=== PATIENT | female | born 1940 | race Caucasian/White ===

== ENCOUNTER 2020-02-17 13:02 | Inpatient (IN) | payer MEDICARE, BC ==
[~2020-02-17] VITALS: Ht 167.6 cm; Wt 54.4 kg
--- NOTE | 2020-02-17 13:10 | NUR ---
BIB DAUGHTER FROM SNF C/O R HIP PAIN S/P GLF 1 MONTH AGO. "WE DID A CT SCAN 2 DAYS AGO AND SHOWS R HIP FRACTURE AND KIDNEY STONE" PATIENT A/OX4, BREATHING EVEN AND UNLABORED, NO SOB NOTED. NEEDS ATTENDED.
--- NOTE | 2020-02-17 13:40 | NUR ---
PATIENT SEEN AND EVALUATED BY DR. PAULINO.
--- NOTE | 2020-02-17 14:01 | NUR ---
EMD TEACHER AT BEDSIDE FOR XRAY
[2020-02-17 14:07] LABS: EOSINOPHILS % (AUTO) 2.8 % (0.0-6.0); HEMATOCRIT 34 % (33-45); LYMPHOCYTES # (AUTO) 0.9 /CMM (0.8-4.8); LYMPHOCYTES % (AUTO) 23.6 % (20.0-44.0); MEAN CORPUSCULAR HGB CONC 33 g/dl (31.0-36.0); MEAN CORPUSCULAR VOLUME 83 fL (82-100); MONOCYTES # (AUTO) 0.4 /CMM (0.1-1.30); MONOCYTES % (AUTO) 11.2 % (2.0-12.0); NEUTROPHILS # (AUTO) 2.4 /CMM (1.8-8.9); NEUTROPHILS % (AUTO) 61.4 % (43.0-81.0); PLATELET COUNT (AUTO) 114 /CMM (150-450); WHITE BLOOD COUNT (AUTO) 3.8 K/uL (4.3-11.0)
[2020-02-17 14:16] LABS: CALCIUM, SERUM 9.3 mg/dL (8.5-10.1); CARBON DIOXIDE 27 mmol/L (21-32); CHLORIDE 105 mmol/L (98-107); CREATININE 1.6 mg/dL (0.6-1.3); GLUCOSE 135 mg/dL (74-106); POTASSIUM 3.9 mmol/L (3.5-5.1); SODIUM SERUM 139 mmol/L (136-145); UREA NITROGEN, BLOOD 23 mg/dL (7-18)
--- NOTE | 2020-02-17 14:22 | NUR ---
PAGED [facility].
[2020-02-17] MEDS ORDERED: QUET25TA PO ×2 (14:23→14:49)
[2020-02-17] MEDS ORDERED: TRAZ-257 PO (14:23)
--- NOTE | 2020-02-17 14:31 | NUR ---
VITA RODRIGES FOR CONSULT.
[2020-02-17] MEDS ORDERED: SITA25TA PO (14:37)
[2020-02-17] MEDS ORDERED: SERT50TA12 PO (14:37)
[2020-02-17] MEDS ORDERED: TRAZ-252 PO (14:37)
[2020-02-17] MEDS ORDERED: LEVE500T20 PO (14:37)
[2020-02-17] MEDS ORDERED: CELE-85 PO (14:37)
[2020-02-17] MEDS ORDERED: TIZA2TAB7 PO (14:37)
[2020-02-17] MEDS ORDERED: DOCU-141 PO (14:49)
[2020-02-17] MEDS ORDERED: ASPI-605 PO (14:49)
[2020-02-17] MEDS ORDERED: UBID30CA21 PO (14:49)
[2020-02-17] MEDS ORDERED: CALC-1198 PO (14:49)
[2020-02-17] MEDS ORDERED: FAMO20TA8 PO (14:49)
[2020-02-17] MEDS ORDERED: CRAN400C PO (14:49)
[2020-02-17] MEDS ORDERED: QUET50TA PO (14:49)
[2020-02-17] MEDS ORDERED: MAGN240P PO (14:49)
[2020-02-17] MEDS ORDERED: ONDANSETRON HCL/PF 4 MG/2 ML VIAL IVP PRN (15:30)
[2020-02-17] MEDS ORDERED: MAG HYDROX/AL HYDROX/SIMETH 30 ML UDC PO PRN (15:30)
[2020-02-17] MEDS ORDERED: ZOLPIDEM TARTRATE 5 MG TABLET PO PRN (15:30)
[2020-02-17] MEDS ORDERED: MAGNESIUM HYDROXIDE 30 ML UDC PO PRN (15:30)
[2020-02-17] MEDS ORDERED: Z GUARD REMEDY 2 OZ OINT TP PRN (15:30)
[2020-02-17] MEDS ORDERED: ACETAMINOPHEN 325 MG TABLET PO PRN (15:30)
--- NOTE | 2020-02-17 15:37 | NUR ---
PATIENT IS ATTEMPTING TO GET OUT OF BED, PATIENT HAS EPISODES OF CONFUSION.
--- NOTE | 2020-02-17 16:10 | NUR ---
BED 304-2
--- NOTE | 2020-02-17 16:17 | NUR ---
REPORT GIVEN TO PHOENIX STANTON.
[2020-02-17 17:00] VITALS: BP 138/86
--- NOTE | 2020-02-17 17:00 | NUR ---
PATIENT RECEIVED FROM ED AT 1700HRS VIA GUSTEFANIE, A/OX1, V/S WITHIN NORMAL LIMITS. RIGHT FOREARM #22G IV, INTACT, SL. PATIENT STATES NO PAIN AT THIS TIME. WILL CONTINUE TO MONITOR
--- NOTE | 2020-02-17 17:01 | NUR ---
PATIENT TRANSFERRED TO ROOM 304-2, NO DISTRESS NOTED. ENDORSED TO PHOENIX RN. PATIENT WAS SEEN AND EXAMINED BY SAMI MONROE.
[2020-02-17] MEDS: IV D5/0.45 NACL 1,000 ML IV PRN (18:53)
--- NOTE | 2020-02-17 18:58 | NUR ---
MS/RN NOTE THE PATIENT A/O X1. DENIES PAIN. IN ROOM AIR AND SATURATION IS AT 97%. RESPIRATION REGULAR AND UNLABORED. DENIES SOB. THE PATIENT IN NO APPARENT DISTRESS. NO SWELLING AND NO DISCOLORATION NOTED AT THE SITE. RFA G 20 PATENT AND5 1/2 NS INFUSING AT 75ML/HR AND NO S/S INFILTRATION NOTED. BED LOW AND LOCKED. SIDE RAILS UP X3. CALL LIGHT WITHIN REACH. WILL ENDORSE TO MILLER APPRENTICE.
--- NOTE | 2020-02-17 19:15 | NUR ---
RN MS OPENING NOTES RECEIVED PATIENT IN BED AWAKE ALERT AND ORIENTED X1, NOTED CONFUSED, RESPIRATIONS EVEN AND UNLABORED WITH EQUAL RISE AND FALL OF CHEST, APPEARS COMFORTABLE AT THIS TIME, NO S/S OF PAIN, IV SITE TO RIGHT FA #20G INTACT AND PATENT, NO REDNESS, NO INFILTRATION PRESENT, PATIENT IS NPO AT THIS TIME, ORIENTED TO STAFF AND CALL LIGHT AND KEPT WITHIN REACH, SAFETY PRECAUTIONS RENDERED, FALL PRECAUTIONS RENDERED, BED ALARM IN PLACE, BED AT LOWEST POSITION. WILL CONTINUE TO MONITOR, INCREASE FREQUENT MONITORING.
[2020-02-17 20:00] VITALS: BP 123/79
--- NOTE | 2020-02-17 22:17 | NUR ---
rn ms notes received call from dr. cornelius elliott with new order to dc npo at midnight and new order for patient to be npo on 02/18/20 after 8am. per cornelius will take care of consents and call family.
--- NOTE | 2020-02-17 22:42 | NUR ---
rn ms notes patient with multiple attempts to get out of bed and pulling on medical tubing , made hospitalist aware emmanuel luna regarding sitter, new order received for sitter, sitter at bedside.
--- NOTE | 2020-02-18 04:01 | NUR ---
RN MS NOTES BASED ON FLACC PAIN SCALE NOTED 4/10 FACIAL GRIMACING.
[2020-02-18] MEDS: HYDROCODONE/APAP 5/325MG 1 EACH TABLET PO PRN (04:02)
--- NOTE | 2020-02-18 04:02 | NUR ---
RN MS NOTES NOTED PATIENT IRRITABLE WITH FACIAL GRIMACING APPEARS TO BE IN DISCOMFORT, NORCO PRN GIVEN TO PROVIDE RELIEF FOR PAIN WILL CONTINUE TO MONITOR.
--- NOTE | 2020-02-18 06:14 | NUR ---
RN MS CLOSING NOTES PATIENT IN BED AWAKE ALERT AND ORIENTED X1, NOTED CONFUSED, RESPIRATIONS EVEN AND UNLABORED WITH EQUAL RISE AND FALL OF CHEST, APPEARS COMFORTABLE AT THIS TIME NORCO EFFECTIVE, NO S/S OF PAIN, IV SITE TO RIGHT HAND #22G INTACT AND PATENT, NO REDNESS, NO INFILTRATION PRESENT, IVF RUNNING ORDERD,PATIENT IS TO BE NPO AFTER 8AM ORDERED PER CHELO LEAL,SITTER AT BEDSIDE, CALL LIGHT KEPT WITHIN REACH, SAFETY PRECAUTIONS RENDERED, FALL PRECAUTIONS RENDERED, BED ALARM IN PLACE, FLUIDS AND SNACK OFFERED TOLERATED WELL, BED AT LOWEST POSITION. WILL CONTINUE TO MONITOR, INCREASE FREQUENT MONITORING AND ENDORSE TO NEXT SHIFT. NO FURTHER CHANGES NOTED
[2020-02-18 07:18] VITALS: BP 123/79
[2020-02-18 07:22] LABS: BASOPHILS # (AUTO) 0.1 /CMM (0.0-0.2); BASOPHILS % (AUTO) 1.2 % (0.0-2.0); EOSINOPHILS % (AUTO) 1.7 % (0.0-6.0); HEMATOCRIT 34 % (33-45); HEMOGLOBIN 11.2 g/dL (11.5-14.8); LYMPHOCYTES # (AUTO) 0.9 /CMM (0.8-4.8); LYMPHOCYTES % (AUTO) 18.8 % (20.0-44.0); MEAN CORPUSCULAR HGB CONC 33 g/dl (31.0-36.0); MEAN CORPUSCULAR VOLUME 82 fL (82-100); MONOCYTES # (AUTO) 0.5 /CMM (0.1-1.30); MONOCYTES % (AUTO) 10.7 % (2.0-12.0); NEUTROPHILS # (AUTO) 3.3 /CMM (1.8-8.9); NEUTROPHILS % (AUTO) 67.6 % (43.0-81.0); PLATELET COUNT (AUTO) 126 /CMM (150-450); RED BLOOD CELL COUNT(AUTO) 4.22 MIL/uL (4.0-5.2); WHITE BLOOD COUNT (AUTO) 4.9 K/uL (4.3-11.0)
[2020-02-18 07:39] LABS: CALCIUM, SERUM 8.9 mg/dL (8.5-10.1); CARBON DIOXIDE 22 mmol/L (21-32); CHLORIDE 107 mmol/L (98-107); CREATININE 1.5 mg/dL (0.6-1.3); GLUCOSE 129 mg/dL (74-106); PHOSPHORUS 3.4 mg/dL (2.5-4.9); POTASSIUM 3.2 mmol/L (3.5-5.1); SODIUM SERUM 140 mmol/L (136-145); UREA NITROGEN, BLOOD 19 mg/dL (7-18)
[2020-02-18 07:47] LABS: THYROID STIMULATING HORMONE 1.938 uIU/mL (0.358-3.74)
[2020-02-18 08:00] VITALS: BP 116/71
--- NOTE | 2020-02-18 08:00 | NUR ---
rn notes Received patient in the room a/o x1, confused, room air, v/s stable. 1;1 sitter next to the patient for safety. patient undress self, removed, diaper, verbally abusive. patient npo possible going surgery, seen hospitalist, call light within to reach, continued monitoring.
[2020-02-18] MEDS ORDERED: POTASSIUM CHLORIDE 20 MEQ TAB.PRT.SR PO SCH (09:00)
[2020-02-18 09:18] LABS: IRON, SERUM 60 ug/dl (50-175); TOTAL IRON BINDING CAPACITY 196 ug/dl (250-450)
--- NOTE | 2020-02-18 09:39 | NUR ---
rn notes seen patient by discount clerk Dr Walker. Patient confused, undressing self, hard to follow direction.
[2020-02-18 11:03] LABS: FERRITIN 73 ng/mL (8-388)
--- NOTE | 2020-02-18 11:20 | NUR ---
RN NOTES PATIENT'S DAUGHTER CALLED FOR AND AGREE FOR SURGERY, CO SIGNED CONSENT WITH CHARGE NURSE GURMEET, NOTIFIED SAMI MONROE FOR CONSENT FORM.
[2020-02-18 12:00] VITALS: BP 162/78
[2020-02-18] MEDS: MORPHINE SULFATE INJ 2 MG/ML DISP.SYRIN IV PRN ×2 (12:02→21:56)
--- NOTE | 2020-02-18 12:02 | NUR ---
rn notes administered Morphine sulfate 2 mg/ml iv push for right hip pain 04/25 per patient request, v/s taken bp 162/78,p-94, r-19. continued monitoring.
--- NOTE | 2020-02-18 13:17 | NUR ---
rn notes medication were administered for pain effective, patient eating lunch tolerated well, patient will rescheduled right hip surgery tomorrow at 07;30 am, daughter name Bibiana notified, and assist to talk to her mother by phone..
--- NOTE | 2020-02-18 16:43 | NUR ---
rn notes get call from anesthesiologist patient need covid-19 testing before surgery, order taken and carried out.
--- NOTE | 2020-02-18 18:00 | NUR ---
RN NOTES COVID-19 TESTED SWAB SANDED TO THE LAB, PATIENT STABLE, V/S WNL. 1:1 SITTER NEXT TO THE BED FOR SAFETY, IV ACCESS INTACT ON RIGHT HAND. PATIENT CONFUSED, UNDRESS SELF, TRYING TO PULL IV ACCESS, NEED CONSTANT REDIRECTION. CALL LIGHT WITHIN TO REACH. ENDORSED ONCOMING NURSE FOLLOW PLAN OF CARE.
--- NOTE | 2020-02-18 18:36 | NUR ---
MS RN NOTES ORAL COVID SWAB TEST DONE, DURING EXAM, PATIENT KEPT ON MOVING TONGUE, COUGHING AND PUSHING SWAB AWAY.
--- NOTE | 2020-02-18 19:05 | NUR ---
RN MS OPENING NOTES RECEIVED PATIENT IN BED AWAKE ALERT AND ORIENTED X1, NOTED CONFUSED, RESPIRATIONS EVEN AND UNLABORED WITH EQUAL RISE AND FALL OF CHEST, APPEARS COMFORTABLE AT THIS TIME , NO S/S OF PAIN, IV SITE TO RIGHT HAND #22G INTACT AND PATENT, NO REDNESS, NO INFILTRATION PRESENT, IVF RUNNING ORDERED,PATIENT IS TO BE NPO AFTER MIDNIGHT FOR SCHEDULED PROCEDURE. ORDERED PER CHELO LEAL,SITTER AT BEDSIDE, CALL LIGHT KEPT WITHIN REACH, SAFETY PRECAUTIONS RENDERED, FALL PRECAUTIONS RENDERED, BED ALARM IN PLACE, FLUIDS AND SNACK OFFERED TOLERATED WELL AT THIS TIME, BED AT LOWEST POSITION. WILL CONTINUE TO MONITOR AND ATTEND TO NEEDS.
[2020-02-18 20:00] VITALS: BP 114/70
--- NOTE | 2020-02-18 21:56 | NUR ---
RN MS NOTES PATIENT COMPLAINT OF PAIN TO HIP AREA, UNABLE TO STATE NUMBER. BASED ON FACE SCALE PAIN ASSESSMENT 8/10. PATIENT NOTED WITH FACIAL GRIMACING, MOANING, GRASPING RIGHT HIP AREA, AND IRRITABLE. MORPHINE PRN ORDERED GIVEN 2MG/1ML, VS WNL WILL CONTINUE TO MONITOR FOR EFFECTIVENESS, PATIENT REPOSITIONED FOR COMFORT.
[2020-02-19] MEDS: IV D5/0.45 NACL 1,000 ML IV PRN (02:21)
--- NOTE | 2020-02-19 04:04 | NUR ---
RN MS NOTES CALLED LAB TO FOLLOW UP FOR COVID RESULTS, STILL PENDING.
--- NOTE | 2020-02-19 06:09 | NUR ---
RN MS CLOSING NOTES PATIENT IN BED AWAKE ALERT AND ORIENTED X1, NOTED CONFUSED, RESPIRATIONS EVEN AND UNLABORED WITH EQUAL RISE AND FALL OF CHEST, APPEARS COMFORTABLE AT THIS TIME MORPHINE WAS EFFECTIVE , NO S/S OF PAIN AT THIS TIME, IV SITE TO RIGHT HAND #22G INTACT AND PATENT, NO REDNESS, NO INFILTRATION PRESENT, IVF RUNNING ORDERED,PATIENT REMAINED NPO AT MIDNIGHT FOR SCHEDULED SURGICAL PROCEDURE THIS AM. ORDERED PER CHELO LEAL,SITTER AT BEDSIDE, CALL LIGHT KEPT WITHIN REACH, SAFETY PRECAUTIONS RENDERED, FALL PRECAUTIONS RENDERED, BED ALARM IN PLACE, BED AT LOWEST POSITION. REPOSITIONED AND OFFLOADED SACRAL INTACT WILL CONTINUE TO MONITOR AND ATTEND TO NEEDS AND ENDORSE TO NEXT SHIFT.
--- NOTE | 2020-02-19 07:02 | NUR ---
RN MS NOTES PATIENT LEFT FOR SURGERY PICKED UP BY SURGICAL STAFF. LEFT THE UNIT IN STABLE CONDITION. ALL CONSENTS AND CHECKLIST DONE.
[2020-02-19] MEDS ORDERED: HYDROMORPHONE INJ 2 MG/ML DISP.SYRIN ONE (07:06)
[2020-02-19] MEDS ORDERED: ROCURONIUM BROMIDE 50 MG/5 ML ONE (07:07)
[2020-02-19] MEDS ORDERED: ANESTHESIA TRAY IN PYXIS 1 EA TRAY MC ONE (07:10)
[2020-02-19] MEDS ORDERED: BUPIVACAINE 0.5 % PF 150 MG/30 ML VIAL ONE (07:10)
[2020-02-19] MEDS ORDERED: BACITRACIN 50000 UNITS/VIAL ONE (07:10)
[2020-02-19 07:30] VITALS: BP 115/70
[2020-02-19] MEDS ORDERED: TRANEXAMIC ACID 1,000 MG in IV NS 0.9% 100 ML IV PRN (08:30)
--- NOTE | 2020-02-19 08:33 | NUR ---
WOUND CARE CONSULT: PT OFF UNIT AT THIS TIME. WILL SEE PT PT CONDITION PERMITS. DISCUSSED SKIN PROTECTION WITH NURSING STAFF.
[2020-02-19] MEDS ORDERED: VANCOMYCIN 1 GM VIAL ONE (08:59)
[2020-02-19] MEDS: CALCIUM CITRATE(CITRACAL) /VITAMIN D 1 TAB TABLET PO SCH (10:00)
[2020-02-19] MEDS ORDERED: HYDROMORPHONE 1 MG/1 ML DISP.SYRIN ONE (10:05)
[2020-02-19 10:24] LABS: BASOPHILS # (AUTO) 0.1 /CMM (0.0-0.2); BASOPHILS % (AUTO) 0.7 % (0.0-2.0); EOSINOPHILS % (AUTO) 0.4 % (0.0-6.0); HEMATOCRIT 33 % (33-45); HEMOGLOBIN 10.7 g/dL (11.5-14.8); LYMPHOCYTES # (AUTO) 2.9 /CMM (0.8-4.8); LYMPHOCYTES % (AUTO) 17.4 % (20.0-44.0); MEAN CORPUSCULAR HGB CONC 32 g/dl (31.0-36.0); MEAN CORPUSCULAR VOLUME 83 fL (82-100); MONOCYTES # (AUTO) 0.6 /CMM (0.1-1.30); MONOCYTES % (AUTO) 3.5 % (2.0-12.0); NEUTROPHILS # (AUTO) 13.2 /CMM (1.8-8.9); PLATELET COUNT (AUTO) 197 /CMM (150-450); RED BLOOD CELL COUNT(AUTO) 4.02 MIL/uL (4.0-5.2); WHITE BLOOD COUNT (AUTO) 16.9 K/uL (4.3-11.0)
[2020-02-19 10:44] LABS: ALANINE AMINOTRANSFERASE 23 U/L (12-78); ALBUMIN 3.3 g/dL (3.4-5.0); ALKALINE PHOSPHATASE 52 U/L (46-116); ASPARTATE AMINOTRANSFERASE 22 U/L (15-37); BILIRUBIN,TOTAL 0.6 mg/dL (0.2-1.0); CARBON DIOXIDE 21 mmol/L (21-32); CHLORIDE 108 mmol/L (98-107); CREATININE 1.5 mg/dL (0.6-1.3); GLUCOSE 207 mg/dL (74-106); MAGNESIUM 1.8 mg/dL (1.8-2.4); PHOSPHORUS 3.3 mg/dL (2.5-4.9); POTASSIUM 3.6 mmol/L (3.5-5.1); SODIUM SERUM 141 mmol/L (136-145); TOTAL PROTEIN, SERUM 5.8 g/dL (6.4-8.2); UREA NITROGEN, BLOOD 18 mg/dL (7-18)
--- NOTE | 2020-02-19 10:45 | NUR ---
RETURNED FROM OR.RT. HIP DRESSING DRY AND INTACT.ABD. PILLOW IN PLACE DVT PUMPS ON 2 IV SITES INTACT.F/CATH TO GRAVITY DRAINAGE.VS DONE AND STABLE.SKIN WARM AND DRY.PT. VERY GROGGY.
[2020-02-19] MEDS: IV LR 1000 ML 1,000 ML IV PRN ×2 (11:28→22:53)
--- NOTE | 2020-02-19 13:00 | NUR ---
DTR. CALLING IN TO CHECK ON PT.
[2020-02-19 16:00] VITALS: BP 135/73
[2020-02-19] MEDS: MORPHINE SULFATE INJ 2 MG/ML DISP.SYRIN IV PRN ×2 (16:02→22:50)
[2020-02-19] MEDS: CEFAZOLIN 2 GM in IV D5W 100 ML IV SCH ×2 (17:13→23:06)
[2020-02-19] MEDS: QUETIAPINE FUMARATE 25 MG TABLET PO SCH (17:17)
[2020-02-19] MEDS: FAMOTIDINE (20 MG) 20 MG TABLET PO SCH (17:17)
--- NOTE | 2020-02-19 18:00 | NUR ---
EMESIS X 2. GIVEN ZOFRAN X 1 AND MEDICATED X 1 WITH MORPHINE.PT. VERY CONFUSED. CHANGE TO ISOFLEX BED. HEATHER. FAIRLY WELL.PT. HAS CONTINUAL SITTER.SIDERAILS UP.
--- NOTE | 2020-02-19 19:45 | NUR ---
MS RN OPENING NOTES RECEIVED PATIENT RESTING IN BED COMFORTABLY; A/OX1, CONFUSED; SITTER AT BEDSIDE; PATIENT TOLERATING ROOM AIR WELL; BREATHING EVEN AND UNLABORED; NO SOB NOTED; R HAND # 22 INTACT AND PATENT; FLUSHING WELL, NO S/S OF REDNESS OR INFILTRATION NOTED; LOYA IN PLACE, FLOWING YELLOW OUTPUT; HIP ABDUCTOR PILLOW IN PLACE; PATIENT SCREAMING ONCE WE ATTEMPTED TO REPOSITION HER; WILL ATTEMPT TO REPOSITION AGAIN LATER, LEFT HIP OFFLOADED; SAFETY PRECAUTIONS IMPLEMENTED; BED LOCKED IN LOW POSITION; SIDE RAILS X2; WILL CONT TO MONITOR
[2020-02-19 20:00] VITALS: BP 139/63
[2020-02-19] MEDS: TRAZODONE 50 MG TABLET PO SCH (21:00)
[2020-02-19] MEDS ORDERED: Medication Not On Formulary EA (Quetiapine Fumarate (Seroquel) 50 MG) PO SCH (22:00)
--- NOTE | 2020-02-19 22:06 | NUR ---
MS STANTON NOTES SPOKE WITH PATIENT DAUGHTER; DAUGHTER INFORMED OF COVID RESULTS WILL TAKE A BIT LONGER THAN 2-3 DAYS D/T LAB BEING SWAMPED WITH COVID TESTS; DAUGHTER SAYS IT IS OKAY TO KEEP PATIENT HERE IF NEEDED; WILL CONT TO MONITOR Addendum: 02/19/20 at 2231 by FRANK CAMPBELL RN PER DAUGHTER (KAMALA), TRY NORCO FOR PAIN MEDICATION PRIOR TO MORPHINE; DAUGHTER DOES NOT WANT MOTHER TO RECEIVE TOO MUCH MORPHINE. WILL INFORM ONCOMING NURSE
--- NOTE | 2020-02-19 23:07 | NUR ---
MS RN NOTES PATIENT IN PAIN, CRYING AND IN DISTRESS; PATIENT IS COMBATIVE; VITALS STABLE BP: 148/98 HR: 115; MORPHINE GIVEN, WILL CONT TO MONITOR AND RE-ASSESS; DAUGHTER CALLED AND INFORMED OF PATIENT CONDITION;
--- NOTE | 2020-02-20 00:08 | NUR ---
MS RN NOTES PATIENT SLEEPING IN BED COMFORTABLY WITH SITTER AT BEDSIDE; WILL CONT TO MONITOR
--- NOTE | 2020-02-20 01:50 | NUR ---
MS RN NOTES PATIENT CONFUSED AND PULLED OUT IV LINE; IV TIP STILL INTACT, NO SIGNS OF BLEEDING; PATIENT COMBATIVE AT THIS TIME; NO DUE IV ANTIBIOTICS AT THIS TIME; WILL ATTEMPT IV ACCESS; CHARGE NURSE AWARE; WILL CONT TO MONITOR;
--- NOTE | 2020-02-20 04:00 | NUR ---
MS RN NOTES IV ACCESS OBTAINED, L FA # 24 INTACT AND PATENT, FLUSHING WELL, NO S/S OF REDNESS OR INFILTRATION NOTED; WILL CONT TO MONITOR
--- NOTE | 2020-02-20 06:40 | NUR ---
MS RN NOTES SPOKE WITH PIPE CAULKER FOR COVID RESULTS, COVID NEGATIVE; WILL INFORM ONCOMING SHIFT; PATIENT RESTING IN BED COMFORTABLY; A/OX1, CONFUSED; SITTER AT BEDSIDE; BREATHING EVEN AND UNLABORED; NO SOB NOTED; PATIENT TOLERATING ROOM AIR WELL; L FA #24 INTACT AND PATENT, FLUSHING WELL, NO S/S OF REDNESS OR INFILTRATION NOTED; LOYA INTACT, FLOWING YELLOW OUTPUT OF 450CC THROUGHOUT SHIFT; ALL NEEDS RENDERED; SAFETY PRECAUTIONS IMPLEMENTED; BED LOCKED IN LOW POSITION; SIDE RAILS X2; WILL ENDORSE TIMMY TO ONCOMING SHIFT
--- NOTE | 2020-02-20 07:00 | NUR ---
MS RN OPENING NOTES RECEIVED PATIENT AWAKE; A/OX1, CONFUSED; 1:1 SITTER AT BEDSIDE; PATIENT SATURATING WELL ON RA; NO SOB NOTED, NO S/S OF ANY PAIN AT THIS TIME.RESPIRATIONS EVEN AND UNLABORED; IV ACCESS TO LFA G# 24, INTACT PATENT AND FLUSHING WELL, LOYA CATHETER IN PLACE, DRAINING TO GRAVITY CLEAR YELLOW URINE OUTPUT; HIP ABDUCTOR PILLOW IN PLACE; ASPIRATION AND SAFETY PRECAUTIONS IN PLACE. HOB ELEVATED TO SEMI FOWLERS POSITION; BED LOCKED LOWEST POSITION; SIDE RAILS UP; BED ALARM ON, CALL LIGHT WITHIN REACH. WILL CONTINUE TO MONITOR
[2020-02-20 08:16] LABS: BASOPHILS % (AUTO) 0.6 % (0.0-2.0); EOSINOPHILS % (AUTO) 0.1 % (0.0-6.0); HEMATOCRIT 27 % (33-45); HEMOGLOBIN 8.8 g/dL (11.5-14.8); LYMPHOCYTES # (AUTO) 0.9 /CMM (0.8-4.8); LYMPHOCYTES % (AUTO) 11.2 % (20.0-44.0); MEAN CORPUSCULAR HGB CONC 33 g/dl (31.0-36.0); MEAN CORPUSCULAR VOLUME 82 fL (82-100); MONOCYTES % (AUTO) 11.8 % (2.0-12.0); NEUTROPHILS # (AUTO) 6.4 /CMM (1.8-8.9); NEUTROPHILS % (AUTO) 76.3 % (43.0-81.0); PLATELET COUNT (AUTO) 131 /CMM (150-450); RED BLOOD CELL COUNT(AUTO) 3.24 MIL/uL (4.0-5.2); WHITE BLOOD COUNT (AUTO) 8.4 K/uL (4.3-11.0)
[2020-02-20 08:48] LABS: CALCIUM, SERUM 8.8 mg/dL (8.5-10.1); CARBON DIOXIDE 23 mmol/L (21-32); CHLORIDE 107 mmol/L (98-107); CREATININE 1.6 mg/dL (0.6-1.3); GLUCOSE 149 mg/dL (74-106); MAGNESIUM 1.9 mg/dL (1.8-2.4); PHOSPHORUS 2.6 mg/dL (2.5-4.9); POTASSIUM 3.6 mmol/L (3.5-5.1); SODIUM SERUM 140 mmol/L (136-145); UREA NITROGEN, BLOOD 26 mg/dL (7-18)
[2020-02-20] MEDS: DOCUSATE SODIUM 100 MG CAPSULE PO SCH (08:55)
[2020-02-20] MEDS: FAMOTIDINE (20 MG) 20 MG TABLET PO SCH ×2 (08:55→16:49)
[2020-02-20] MEDS: ASPIRIN EC 81 MG TABLET.DR PO SCH (08:55)
[2020-02-20] MEDS: MAGNESIUM OXIDE 400 MG TABLET PO SCH (08:55)
[2020-02-20] MEDS: HYDROCODONE/APAP 5/325MG 1 EACH TABLET PO PRN (08:56)
[2020-02-20] MEDS: SERTRALINE HCL 50 MG TABLET PO SCH (08:56)
[2020-02-20] MEDS: QUETIAPINE FUMARATE 25 MG TABLET PO SCH ×2 (08:56→16:49)
--- NOTE | 2020-02-20 08:56 | NUR ---
PT GRIMACING, GROANING AND CRYING. NORCO 5-325MG PO Q4HR PRN ADMINISTERED. WILL CONTINUE TO MONITOR
[2020-02-20] MEDS: ENOXAPARIN SODIUM 30 MG/0.3 ML DISP.SYRIN SQ SCH (08:57)
[2020-02-20] MEDS ORDERED: UBIDECARENONE 30 MG PO SCH (09:00)
[2020-02-20] MEDS ORDERED: Medication Not On Formulary EA (Cranberry 400 MG) PO SCH (09:00)
[2020-02-20] MEDS ORDERED: POTASSIUM CHLORIDE 20 MEQ TAB.PRT.SR PO SCH (10:00)
[2020-02-20] MEDS: CALCIUM CITRATE(CITRACAL) /VITAMIN D 1 TAB TABLET PO SCH (10:22)
[2020-02-20] MEDS: IV NS 0.9% 1,000 ML IV PRN ×2 (10:31→23:17)
[2020-02-20] MEDS: POTASSIUM CL. PREMIX PERIPHER. 50 ML IV SCH ×4 (11:20→14:28)
[2020-02-20] MEDS: MORPHINE SULFATE INJ 2 MG/ML DISP.SYRIN IV PRN ×2 (12:47→17:46)
[2020-02-20] MEDS ORDERED: HYDR-3972 PO (15:33)
[2020-02-20] MEDS ORDERED: ENOX30DI SQ (15:33)
[2020-02-20] MEDS ORDERED: hydrALAZINE HCL 25 MG TABLET PO PRN (17:30)
--- NOTE | 2020-02-20 18:50 | NUR ---
MS RN CLOSING NOTES PT IN BED, AWAKE AT THIS TIME. PATIENT REMAINED STABLE THROUGHOUT SHIFT. ALL NEEDS, CARE, TREATMENT AND MEDICATIONS ADMINISTERED ANTICIPATED PER PROTOCOL. PATIENT KEPT CLEAN AND DRY. SAFETY PRECAUTIONS IN PLACE. LOYA CATHETER D/C. HOB ELEVATED TO SEMI FOWLERS POSITION; SIDE RAILS UP AND PADDED, BED ALARM ON, BED LOCKED LOWEST POSITION. CALL LIGHT WITHIN REACH. WILL ENDORSE TO DIGITAL STRATEGIST NURSE FOR TIMMY
--- NOTE | 2020-02-20 19:35 | NUR ---
MS RN OPENING NOTES PATIENT SLEEPING IN BED. A/OX1; CONFUSED; 1 ON 1 SITTER PRESENT AT THE BEDSIDE. ON RA. NO S/S OF ACUTE RESPIRATORY DISTRESS; BREATHING IS EVEN AND UNLABORED; NO S/S OF PAIN NOTED. ABDUCTION PILLOW PRESENT; SURGICAL SITE ON RIGHT HIP DRY AND INTACT. IV PRESENT ON LEFT FOREARM, SIZE 22, INTACT & PATENT, NS RUNNING AT 125 ML/HR. PATIENT TO BE DISCHARGED TO [facility]; AWAITING FOR PICKUP BY [facility]. SAFETY MEASURES IN PLACE AND PATIENT'S NEEDS MET. BED LOCKED, ALARM ON, SIDE RAILS X2, CALL LIGHT WITHIN REACH. WILL CONTINUE TO MONITOR.
--- NOTE | 2020-02-20 19:50 | NUR ---
MS RN NOTE CALLED [facility] FOR REPORT; SPOKE TO ELIE. PATIENT TO BE PLACED IN ROOM 110 B. AWAITING FOR TRANSPORTATION.
[2020-02-20 20:00] VITALS: BP 124/70
--- NOTE | 2020-02-20 20:15 | NUR ---
MS RN NOTES RECEIVED CALL FROM [facility]. PER NURSEELIE, FACILITY IS UNABLE TO ACCEPT PATIENT DUE TO CONFUSION/COMBATIVENESS. NURSING CHANNELER RUNNER AND CASE MANAGEMENT AWARE. CASE MANAGEMENT TO F/U WITH SNF.
[2020-02-20] MEDS: TRAZODONE 50 MG TABLET PO SCH (22:38)
--- NOTE | 2020-02-21 06:40 | NUR ---
MS RN CLOSING NOTES PATIENT SLEEPING IN BED. A/OX1; 1 ON 1 SITTER PRESENT AT THE BEDSIDE. ON RA. NO S/S OF ACUTE RESPIRATORY DISTRESS; BREATHING IS EVEN AND UNLABORED; NO S/S OF PAIN NOTED. ABDUCTION PILLOW REMAINS PRESENT. IV PRESENT ON LEFT FOREARM, SIZE 22, INTACT & PATENT, NS RUNNING AT 125 ML/HR. SAFETY MEASURES IN PLACE AND PATIENT'S NEEDS MET. BED LOCKED, ALARM ON, SIDE RAILS X2, CALL LIGHT WITHIN REACH. WILL ENDORSE TO DAY SHIFT NURSE PLAN OF CARE.
--- NOTE | 2020-02-21 07:25 | NUR ---
MS RN NOTES RECEIVED PATIENT IN BED RESTING COMFORTABLY IN MODERATE HIGH BACK REST. A/OX1; 1 ON 1 SITTER PRESENT AT THE BEDSIDE. ON RA. NO S/S OF DISTRESS NOTED AT THIS TIME; BREATHING IS EVEN AND UNLABORED; ABDUCTION PILLOW REMAINS PRESENT. IV PRESENT ON LEFT FOREARM, #22, INTACT & PATENT, NS RUNNING AT 125 ML/HR. SAFETY MEASURES IN PLACE. BED LOCKED, ALARM ON, SIDE RAILS X2, CALL LIGHT WITHIN REACH. WILL CONTINUE TO MONITOR.
[2020-02-21 07:46] LABS: BASOPHILS % (AUTO) 0.4 % (0.0-2.0); EOSINOPHILS % (AUTO) 0.9 % (0.0-6.0); HEMATOCRIT 22 % (33-45); HEMOGLOBIN 7.6 g/dL (11.5-14.8); LYMPHOCYTES # (AUTO) 0.8 /CMM (0.8-4.8); LYMPHOCYTES % (AUTO) 13.9 % (20.0-44.0); MEAN CORPUSCULAR HGB CONC 34 g/dl (31.0-36.0); MEAN CORPUSCULAR VOLUME 83 fL (82-100); MONOCYTES # (AUTO) 0.8 /CMM (0.1-1.30); MONOCYTES % (AUTO) 13.1 % (2.0-12.0); NEUTROPHILS # (AUTO) 4.2 /CMM (1.8-8.9); NEUTROPHILS % (AUTO) 71.7 % (43.0-81.0); PLATELET COUNT (AUTO) 94 /CMM (150-450); RED BLOOD CELL COUNT(AUTO) 2.68 MIL/uL (4.0-5.2); WHITE BLOOD COUNT (AUTO) 5.9 K/uL (4.3-11.0)
[2020-02-21 08:00] VITALS: BP 130/74
[2020-02-21 08:01] LABS: ALBUMIN 2.7 g/dL (3.4-5.0); CALCIUM, SERUM 7.9 mg/dL (8.5-10.1); CREATININE 1.2 mg/dL (0.6-1.3); PHOSPHORUS 2.3 mg/dL (2.5-4.9); TOTAL PROTEIN, SERUM 5.4 g/dL (6.4-8.2)
[2020-02-21] MEDS: CALCIUM CITRATE(CITRACAL) /VITAMIN D 1 TAB TABLET PO SCH (08:31)
[2020-02-21] MEDS: SERTRALINE HCL 50 MG TABLET PO SCH (08:32)
[2020-02-21] MEDS: QUETIAPINE FUMARATE 25 MG TABLET PO SCH ×2 (08:32→16:25)
[2020-02-21] MEDS: DOCUSATE SODIUM 100 MG CAPSULE PO SCH (08:32)
[2020-02-21] MEDS: FAMOTIDINE (20 MG) 20 MG TABLET PO SCH ×2 (08:32→16:25)
[2020-02-21] MEDS: MAGNESIUM OXIDE 400 MG TABLET PO SCH (08:32)
[2020-02-21] MEDS: ASPIRIN EC 81 MG TABLET.DR PO SCH (08:33)
[2020-02-21] MEDS: ENOXAPARIN SODIUM 30 MG/0.3 ML DISP.SYRIN SQ SCH (08:35)
[2020-02-21] MEDS: LOSARTAN POTASSIUM 50 MG TABLET PO SCH (09:14)
[2020-02-21 09:38] LABS: LYMPHOCYTES % (MANUAL) 10 % (16-48); MONOCYTES % (MANUAL) 10 % (0-11.0); NEUTROPHILS % (MANUAL) 80 (42-76)
[2020-02-21] MEDS ORDERED: K PHOS NEUTRAL 250 MG TABLET PO ONE (12:30)
--- NOTE | 2020-02-21 15:15 | NUR ---
RN NOTES SEEN AND EXAMINE BY DR. MACE WITH ORDERS OF ENSURE TID, ORDERS MADE AND CARRIED OUT. WILL CONTINUE TO MONITOR.
[2020-02-21 16:00] VITALS: BP 115/64
--- NOTE | 2020-02-21 17:00 | NUR ---
RN NOTES CALLED AND LEFT MESSAGE AT DR. PARKS OFFICE( [phone]) REGARDING CONSULT. PLEASE FOLLOW UP.
--- NOTE | 2020-02-21 18:51 | NUR ---
MS RN NOTES PATIENT IN BED RESTING COMFORTABLY IN MODERATE HIGH BACK REST. A/OX1; 1 ON 1 SITTER PRESENT AT THE BEDSIDE. ON RA. NO S/S OF DISTRESS NOTED THROUGHOUT THE SHIFT; BREATHING IS EVEN AND UNLABORED; ABDUCTION PILLOW REMAINS PRESENT. SAFETY MEASURES IN PLACE. BED LOCKED, ALARM ON, SIDE RAILS X2, CALL LIGHT WITHIN REACH. WILL ENDORSE TO TAKER OUT NURSE FOR TIMMY.
--- NOTE | 2020-02-21 19:30 | NUR ---
MS RN OPENING NOTE RECEIVED PATIENT IN BED. A/OX1, PER REPORT PATIENT IS CONFUSED AND COMBATIVE. TOLERATING ROOM AIR. RESPIRATIONS ARE EVEN AND UNLABORED. NO S/S SOB NOTED. NO S/S PAIN AT THIS TIME. IN NO APPARENT DISTRESS. IV ACCESS IN LFA #22 CURRENTLY PATENT AND SALINE LOCKED. BED IS LOWEST POSITION AND LOCKED, HOB FLAT, SIDE RIALS UP X3. CALL LIGHT WITHIN REACH. SITTER BRANDT AT BEDSIDE. WILL CONTINUE TO MONITOR.
[2020-02-21 20:00] VITALS: BP 134/72
[2020-02-21] MEDS: IV NS 0.9% 1,000 ML IV PRN (20:04)
[2020-02-21] MEDS: TRAZODONE 50 MG TABLET PO SCH (22:00)
[2020-02-22 06:39] LABS: BASOPHILS % (AUTO) 0.4 % (0.0-2.0); EOSINOPHILS % (AUTO) 1.9 % (0.0-6.0); HEMATOCRIT 23 % (33-45); HEMOGLOBIN 7.7 g/dL (11.5-14.8); LYMPHOCYTES # (AUTO) 0.9 /CMM (0.8-4.8); LYMPHOCYTES % (AUTO) 18.8 % (20.0-44.0); MEAN CORPUSCULAR HGB CONC 34 g/dl (31.0-36.0); MEAN CORPUSCULAR VOLUME 83 fL (82-100); MONOCYTES # (AUTO) 0.5 /CMM (0.1-1.30); MONOCYTES % (AUTO) 9.8 % (2.0-12.0); NEUTROPHILS # (AUTO) 3.2 /CMM (1.8-8.9); NEUTROPHILS % (AUTO) 69.1 % (43.0-81.0); PLATELET COUNT (AUTO) 102 /CMM (150-450); RED BLOOD CELL COUNT(AUTO) 2.77 MIL/uL (4.0-5.2); WHITE BLOOD COUNT (AUTO) 4.7 K/uL (4.3-11.0)
[2020-02-22 06:45] LABS: ALBUMIN 2.3 g/dL (3.4-5.0); BILIRUBIN,TOTAL 0.5 mg/dL (0.2-1.0); CALCIUM, SERUM 8.1 mg/dL (8.5-10.1); CREATININE 1.2 mg/dL (0.6-1.3); MAGNESIUM 1.9 mg/dL (1.8-2.4); PHOSPHORUS 2.6 mg/dL (2.5-4.9); POTASSIUM 3.7 mmol/L (3.5-5.1)
--- NOTE | 2020-02-22 07:03 | NUR ---
MS RN CLOSING NOTE PATIENT IN BED. A/OX1, PATIENT IS CONFUSED. REMAINS TOLERATING ROOM AIR. RESPIRATIONS ARE EVEN AND UNLABORED. NO SOB NOTED. NO S/S PAIN. NO DISTRESS. IV ACCESS MAINTAINED IN LFA #22 PATENT AND SALINE LOCKED. BED LOW AND LOCKED, HOB IN SEMI FOWLERS, SIDE RIALS UP X3. CALL LIGHT WITHIN REACH. SITTER AT BEDSIDE. WILL ENDORSE TO NEXT SHIFT
--- NOTE | 2020-02-22 07:30 | NUR ---
MS/RN Opening note Patient received from linoleum layer apprentice. A/O X1, calm and cooperative at this time. Dressing to right hip dry and intact. Heels off loaded on pillows, will attempt to reposition every 2-3 hours to prevent skin breakdown. Heplock to left arm flushing well with normal saline, covered with sleeve to prevent from being pulled out. Bed in low setting, side rails X3 in upright position, brakes locked. Sitter at bedside to ensure safety. Will continue to monitor.
[2020-02-22 08:00] VITALS: BP 127/94
[2020-02-22] MEDS: ASPIRIN EC 81 MG TABLET.DR PO SCH (08:00)
[2020-02-22] MEDS: HYDROCODONE/APAP 5/325MG 1 EACH TABLET PO PRN (08:20)
[2020-02-22] MEDS: MAGNESIUM OXIDE 400 MG TABLET PO SCH (08:20)
[2020-02-22] MEDS: DOCUSATE SODIUM 100 MG CAPSULE PO SCH (08:20)
[2020-02-22] MEDS: FAMOTIDINE (20 MG) 20 MG TABLET PO SCH ×2 (08:20→16:25)
[2020-02-22] MEDS: LOSARTAN POTASSIUM 50 MG TABLET PO SCH (08:21)
[2020-02-22] MEDS: QUETIAPINE FUMARATE 25 MG TABLET PO SCH ×3 (08:21→21:54)
[2020-02-22] MEDS: SERTRALINE HCL 50 MG TABLET PO SCH (08:21)
[2020-02-22] MEDS: ENOXAPARIN SODIUM 30 MG/0.3 ML DISP.SYRIN SQ SCH (08:22)
[2020-02-22] MEDS: CALCIUM CITRATE(CITRACAL) /VITAMIN D 1 TAB TABLET PO SCH (09:00)
--- NOTE | 2020-02-22 09:07 | NUR ---
MS/RN Medications Patient took all but one of the medications (calcium). Started to get agitated and uncooperative, attempting to pinch and scratch nursing staff.
--- NOTE | 2020-02-22 09:34 | NUR ---
MS/RN S/B Dr Medina Seen by Dr Medina - will restart all psychiatric medications due to diagnosis of dementia.
--- NOTE | 2020-02-22 09:39 | NUR ---
WOUND CARE CONSULT: ATTEMPTED TO SEE PT AT 0835 THIS AM BUT PT ADAMANTLY REFUSED SKIN ASSESSMENT. PT WAS SEEN AT 0900 FOR SKIN ASSESSMENT WHICH WAS LIMITED DUE TO PT AGITATION AND COMBATIVENESS. PT IS INCONTINENT AND WAS NOTED TO HAVE SOME DISCOLORATION TO LOWER BUTTOCKS. SURGICAL DRESSING DRY AND INTACT TO RT HIP. RECOMMENDATIONS MADE FOR SKIN PROTECTION. DISCUSSED WITH NURSING STAFF. PT IS ON WINNIE ISOFLEX LOW AIRLOSS BED. WILL SEE PRN. IN AGREEMENT WITH PLAN OF CARE.
--- NOTE | 2020-02-22 10:00 | NUR ---
MS/RN S/B Dr Silva Seen by Dr Silva - discharge planning to [facility], needs to be without sitter for 48hours.
--- NOTE | 2020-02-22 14:00 | NUR ---
MS/RN S/B Ortho Patient is cleared for discharge to [facility].
[2020-02-22 16:00] VITALS: BP_SYST 131; BP_DIAS 62; BP_DIAS 66
--- NOTE | 2020-02-22 17:09 | NUR ---
MS/RN Medications Evening medications administered as ordered, cooperative with care at this time.
--- NOTE | 2020-02-22 18:13 | NUR ---
MS/RN End note Patient remains with sitter at bedside due to increased confusion, progressively more confused as the day has progressed. Able to turn move around bed, at risk of dislocating hip therefore abduction pillow to stay in place unless working with physical therapy. Heels off loaded on pillows but patient frequently moving. Dressing to right hip removed by patient, will replace once calmer. Last pain medication administered at 1810 prior to being changed. Will endorse to rapid outsole stitcher.
--- NOTE | 2020-02-22 19:30 | NUR ---
MS RN OPENING NOTE RECEIVED PATIENT IN BED. A/OX1-2, PATIENT IS PLEASANTLY CONFUSED. TOLERATING ROOM AIR. RESPIRATIONS ARE EVEN AND UNLABORED. NO S/S SOB NOTED. NO S/S PAIN AT THIS TIME. IN NO APPARENT DISTRESS. IV ACCESS IN LFA #22 RUNNING NS@125ML/HR . BED IS LOWEST POSITION AND LOCKED, HOB FLAT, SIDE RIALS UP X3. CALL LIGHT WITHIN REACH. SITTER KATHI AT BEDSIDE. WILL CONTINUE TO MONITOR.
[2020-02-22 20:00] VITALS: BP 141/73
[2020-02-23] MEDS: IV NS 0.9% 1,000 ML IV PRN (04:26)
[2020-02-23 06:33] LABS: BASOPHILS % (AUTO) 0.6 % (0.0-2.0); HEMATOCRIT 23 % (33-45); HEMOGLOBIN 7.6 g/dL (11.5-14.8); LYMPHOCYTES # (AUTO) 1.3 /CMM (0.8-4.8); LYMPHOCYTES % (AUTO) 24.1 % (20.0-44.0); MEAN CORPUSCULAR HGB CONC 33 g/dl (31.0-36.0); MEAN CORPUSCULAR VOLUME 83 fL (82-100); MONOCYTES # (AUTO) 0.6 /CMM (0.1-1.30); MONOCYTES % (AUTO) 11.3 % (2.0-12.0); NEUTROPHILS # (AUTO) 3.3 /CMM (1.8-8.9); RED BLOOD CELL COUNT(AUTO) 2.75 MIL/uL (4.0-5.2); WHITE BLOOD COUNT (AUTO) 5.5 K/uL (4.3-11.0)
[2020-02-23 06:58] LABS: CALCIUM, SERUM 8.1 mg/dL (8.5-10.1); MAGNESIUM 1.8 mg/dL (1.8-2.4); PHOSPHORUS 1.8 mg/dL (2.5-4.9); POTASSIUM 3.8 mmol/L (3.5-5.1)
--- NOTE | 2020-02-23 07:00 | NUR ---
MS RN CLOSING NOTE PATIENT IN BED. A/OX1-2, PLEASANTLY CONFUSED. TOLERATING ROOM AIR. RESPIRATIONS ARE EVEN AND UNLABORED. NO SOB NOTED. NO C/O PAIN. NO DISTRESS. IV ACCESS MAINTAINED IN LFA #22 RUNNING NS@125ML/HR . BED REMAINS LOWEST POSITION AND LOCKED, HOB FLAT, SIDE RIALS UP X3. CALL LIGHT WITHIN REACH. SITTER AT BEDSIDE. WILL ENDORSE TO NEXT SHIFT
[2020-02-23 08:00] VITALS: BP 138/85
--- NOTE | 2020-02-23 08:00 | NUR ---
MS/RN Opening note Patient received from [facility] shift lead. A/O X1/2, calm and re- dilatable. Dressing to right hip dry and intact. Heels off loaded on pillows, abduction pillow between the legs. will attempt to reposition every 2- hours to prevent skin breakdown. Heplock to left arm flushing well with normal saline, covered with sleeve to prevent from being pulled out. administered scheduled medication, v/s wnl, patient was complaining of pain on right hip 6/10 per pain scale. Bed in low setting, side rails X3 in upright position, patient tolerated bleakest 40% self. call light within to reach. continued monitoring.
[2020-02-23 08:02] LABS: PLATELET COUNT (AUTO) 148 /CMM (150-450)
[2020-02-23] MEDS ORDERED: NEUTRA PHOS 1 POWD.PACKET PO ONE (09:00)
[2020-02-23] MEDS: ASPIRIN EC 81 MG TABLET.DR PO SCH (09:58)
[2020-02-23] MEDS: HYDROCODONE/APAP 5/325MG 1 EACH TABLET PO PRN ×2 (09:59→16:52)
[2020-02-23] MEDS: MAGNESIUM OXIDE 400 MG TABLET PO SCH (09:59)
[2020-02-23] MEDS: DOCUSATE SODIUM 100 MG CAPSULE PO SCH (09:59)
[2020-02-23] MEDS: QUETIAPINE FUMARATE 25 MG TABLET PO SCH ×3 (09:59→21:28)
--- NOTE | 2020-02-23 09:59 | NUR ---
rn notes administered narco 5/325mg po prn for pain 02/23 per patient request, v/s taken bp -138/85, p-88, continued monitoring.
[2020-02-23] MEDS: LOSARTAN POTASSIUM 50 MG TABLET PO SCH (10:00)
[2020-02-23] MEDS: SERTRALINE HCL 50 MG TABLET PO SCH (10:00)
[2020-02-23] MEDS: FAMOTIDINE (20 MG) 20 MG TABLET PO SCH ×2 (10:00→16:52)
--- NOTE | 2020-02-23 10:00 | NUR ---
rn notes medication were administered for pain effective, seen patient by hospitalist, plan to discharge to the snf. also seen via PT, patient get out of bed and ambulated a few steps by assist of 2 persons.
[2020-02-23] MEDS: ENOXAPARIN SODIUM 30 MG/0.3 ML DISP.SYRIN SQ SCH (10:02)
[2020-02-23] MEDS: CALCIUM CITRATE(CITRACAL) /VITAMIN D 1 TAB TABLET PO SCH (10:16)
[2020-02-23 10:17] LABS: BAND % (MANUAL) 2 % (0.0-5.0); LYMPHOCYTES % (MANUAL) 16 % (16-48); MONOCYTES % (MANUAL) 8 % (0-11.0); NEUTROPHILS % (MANUAL) 74 (42-76)
[2020-02-23 16:00] VITALS: BP 132/67
--- NOTE | 2020-02-23 16:53 | NUR ---
rn notes administered narco 5/325 mg po prn for right hip pain 02/23 per patient request, v/s taken bp-132/67, p-94, also administered scheduled medication. assist turn and reposition q 2 hr. continued monitoring.
[2020-02-23 17:04] VITALS: BP 132/67
--- NOTE | 2020-02-23 18:00 | NUR ---
RN NOTES PATIENT STABLE, MEDICATION WERE ADMINISTERED FOR PAIN EFFECTIVE, ABDUCTION PILLOW ON, PATIENT IN THE BED, ASSIST TURN AND REPOSTION Q 2 HR. PATIENT INCONTINENT. HELD DISCHARGE ORDER PER HOSPITALIST MELISSA BLOOM. PATIENT WILL DISCHARGE TOMORROW, BOARD AND CARE. CHARGE NURSE AWARE OF. CALL LIGHT WITHIN TO REACH. ENDORSED ONCOMING NURSE FOLLOW PLAN OF CARE.
[2020-02-23 19:30] VITALS: BP 129/79
--- NOTE | 2020-02-23 19:51 | NUR ---
MS RN NOTES PATIENT IN BED, AWAKE, ALERT AND ORIENTED X 2. BREATHING EVEN AND UNLABORED ON ROOM AIR. SHOWS NO SIGNS OF ACUTE RESPIRATORY DISTRESS. NO ACUTE PAIN. IV ON LFA #22G ITS CLEAN DRY AND INTACT. SHOWS NO SIGNS OF INFILTRATION NO REDNESS. SAFETY PRECAUTIONS IN PLACE. BED IN LOWEST POSITION, LOCKED, AND CALL LIGHT KEPT WITHIN REACH. WILL CONTINUE TO MONITOR.
[2020-02-24] MEDS: HYDROCODONE/APAP 5/325MG 1 EACH TABLET PO PRN (05:06)
--- NOTE | 2020-02-24 05:06 | NUR ---
MS RN NOTES PATIENT COMPLAINING OF PAIN. GIVEN PRN NORCO AT 0506. WILL CONTINUE TO MONITOR.
--- NOTE | 2020-02-24 06:31 | NUR ---
MS RN NOTES PATIENT IN BED, ASLEEP, ALERT AND ORIENTED X 2. BREATHING EVEN AND UNLABORED ON ROOM AIR. SHOWS NO SIGNS OF ACUTE RESPIRATORY DISTRESS. NO ACUTE PAIN. IV ON LFA #22G ITS CLEAN DRY AND INTACT. SHOWS NO SIGNS OF INFILTRATION NO REDNESS. ALL DUE MEDICATIONS GIVEN. SAFETY PRECAUTIONS IN PLACE. BED IN LOWEST POSITION, LOCKED, AND CALL LIGHT KEPT WITHIN REACH. WILL ENDORSE TO ONCOMING NURSE.
--- NOTE | 2020-02-24 07:30 | NUR ---
received pt. this am,very confused,hip drsg dry and intact.no c/o pain.vs stable.
[2020-02-24 08:00] VITALS: BP 136/70
[2020-02-24] MEDS: DOCUSATE SODIUM 100 MG CAPSULE PO SCH (09:21)
[2020-02-24] MEDS: FAMOTIDINE (20 MG) 20 MG TABLET PO SCH ×2 (09:21→17:32)
[2020-02-24] MEDS: ASPIRIN EC 81 MG TABLET.DR PO SCH (09:21)
[2020-02-24] MEDS: QUETIAPINE FUMARATE 25 MG TABLET PO SCH ×2 (09:21→17:32)
[2020-02-24] MEDS: CALCIUM CITRATE(CITRACAL) /VITAMIN D 1 TAB TABLET PO SCH (09:22)
[2020-02-24] MEDS: SERTRALINE HCL 50 MG TABLET PO SCH (09:22)
[2020-02-24] MEDS: MAGNESIUM OXIDE 400 MG TABLET PO SCH (09:22)
[2020-02-24] MEDS: LOSARTAN POTASSIUM 50 MG TABLET PO SCH (09:22)
[2020-02-24] MEDS: ENOXAPARIN SODIUM 30 MG/0.3 ML DISP.SYRIN SQ SCH (09:24)
[2020-02-24] MEDS ORDERED: NA PHOS,M-B/NA PHOS,DI-BA 1 EA ENEMA RC PRN (15:00)
[2020-02-24] MEDS ORDERED: NA PHOS,M-B/NA PHOS,DI-BA 1 EA ENEMA RC ONE (15:08)
--- NOTE | 2020-02-24 15:31 | NUR ---
RN NOTED NO RECORD OF BM SINCE ADMIT,RECEIVED ORDER FOR ENEMA AND FLEETS ENEMA GIVEN,TOLERATING POORLY AND FIGHTING NURSE WELL FIGHTING DRESSING CHG. PHOTOS TAKEN YESTERDAY.
--- NOTE | 2020-02-24 15:36 | NUR ---
DUPLICATE ORDER FOR ENEMA.
[2020-02-24 16:00] VITALS: BP 142/84
--- NOTE | 2020-02-24 17:00 | NUR ---
staff walked by rm. to find pt. getting oob. still having bm.assisted back to bed and cleaned up.hep lock out.new dressing to rt. hip and mepilex to sacral area.
--- NOTE | 2020-02-24 17:40 | NUR ---
ambulance transport here and given report. all papers signed.taken via amb. to pt's board and care.belongings sent with pt.
== END 2020-02-24 17:40 | disposition home or self-care (01) | DRG 469 ==
LOC: ER 13:02 → MED 16:54
PROVIDERS: ADMIT Student in an Organized Health Care Education/Training Program; ATTEND Nurse Practitioner Acute Care
PROC: 0SRR0JZ Replacement of Right Hip Joint, Femoral Surface with Synthetic Substitute, Open Approach (ICD-10-PCS; principal; 2020-02-19)
DX: S72.001A Fracture of unspecified part of neck of right femur, initial encounter for closed fracture (principal); N17.0 Acute kidney failure with tubular necrosis; N13.2 Hydronephrosis with renal and ureteral calculous obstruction; G93.40 Encephalopathy, unspecified; F03.91 Unspecified dementia, unspecified severity, with behavioral disturbance; W18.30XA Fall on same level, unspecified, initial encounter; Y92.89 Other specified places as the place of occurrence of the external cause; N18.9 Chronic kidney disease, unspecified; E11.22 Type 2 diabetes mellitus with diabetic chronic kidney disease; D69.6 Thrombocytopenia, unspecified; D64.9 Anemia, unspecified; I12.9 Hypertensive chronic kidney disease with stage 1 through stage 4 chronic kidney disease, or unspecified chronic kidney disease; M19.90 Unspecified osteoarthritis, unspecified site; E87.6 Hypokalemia; K21.9 Gastro-esophageal reflux disease without esophagitis; G40.909 Epilepsy, unspecified, not intractable, without status epilepticus; D35.00 Benign neoplasm of unspecified adrenal gland; F39 Unspecified mood [affective] disorder; M48.56XD Collapsed vertebra, not elsewhere classified, lumbar region, subsequent encounter for fracture with routine healing
CPT/HCPCS: 36415; 71045-TC; 72170-TC; 73502; 73700-TC; 80048-TC; 80053-TC; 82728-TC; 82962-TC; 83540-TC; 83735-TC; 84100-TC; 84439-TC; 84443-TC; 84484-TC; 85025-TC; 85610-TC; 85652-TC; 85730-TC; 86850-TC; 86921-TC; 87081-TC; 88305-TC; 88311-TC; 93307-TC; 97110-TC; 97112-TC; 97116-TC; 97530-TC; A4217; A6209; C1713; C1776; G0378; J0690; J1100; J1170; J1650; J2270; J2405; J2704; J2710; J3370; J3480; J3490; J7030; J7060; J7120; U0003-CS